=== PATIENT | female | born 1990 | race African-American/Black ===

== ENCOUNTER 2019-11-01 07:37 | Emergency (ER) | payer OTHER ==
[2019-11-01 07:55] VITALS: BP 109/54; PULSE 73; TEMP 98.5; BMI 23.8
--- NOTE | 2019-11-01 08:08 | PDOC ---
History of Present Illness - General Chief Complaint: Back Pain Stated Complaint: BACK PAIN Time Seen by Provider: 11/01/19 07:52 Past History - Medical History Allergies/Adverse Reactions: Allergies Allergy/AdvReac Type Severity Reaction Status Date / Time No Known Allergies Allergy Verified 11/01/19 07:52 Home Medications: Ambulatory Orders NK [No Known Home Medication] 01/09/16 Anemia: No Asthma: No Cancer: No Cardiac Disorders: No COPD: No Diabetes: No HTN: No Seizures: No Thyroid Disease: No - Surgical History Abdominal Surgery: No - Reproductive History (#): 1 Para: 0 Cervical CA: No Dysfunctional Uterine Bleeding: No Ectopic : No Endometrial CA: No Polycystic Ovaries: No Therapeutic (s) & number: No Tubal Ligation: No Spontaneous : 0 - Immunization History Immunization Up to Date: Yes - Psycho-Social/Smoking History Smoking Status: No Smoking History: Never smoked Have you smoked in the past 12 months: No Number of Cigarettes Smoked Daily: 0 Cigars Per Day: 0 Information on smoking cessation initiated: No - Substance Abuse Hx (Audit-C & DAST Scrn) How often the patient has a drink containing alcohol: Monthly or less Number of drinks the patient has on a typical day: 1 or 2 How often the patient has six or more drinks on one occasion: Less than monthly Score: In Men: 4 or > Positive; In Women: 3 or > Positive: 2 Screen Result (Pos requires Nsg. Audit-10AR): Negative In the last yr the pt used illegal drug/Rx for NonMed reason: No Score: Yes response is considered Positive: 0 Screen Result (Positive result requires Nsg. DAST-10): Negative *Physical Exam - Vital Signs Last Vital Signs Temp Pulse Resp BP Pulse Ox 98.5 F 73 18 109/54 L 100 11/01/19 07:50 11/01/19 07:50 11/01/19 07:50 11/01/19 07:50 11/01/19 07:50
[2019-11-01] MEDS ORDERED: LIDOCAINE 5% TOPICAL PATCH TP ONE (08:09)
[2019-11-01] MEDS ORDERED: IBUPROFEN 600 MG TABLET (FP) PO ONE ×2 (08:09→08:12)
[2019-11-01] MEDS ORDERED: LIDOCAINE 5% TOPICAL PATCH ONE (08:12)
--- NOTE | 2019-11-01 08:15 | PDOC ---
History of Present Illness - General Chief Complaint: Back Pain Stated Complaint: BACK PAIN Time Seen by Provider: 11/01/19 07:52 History Source: Patient Exam Limitations: No Limitations - History of Present Illness Initial Comments: 11/01/19 08:10 29-year-old female with no significant medical history presenting with back pain x1 day. Patient states she woke up in the morning yesterday from bed with mid back pain, worse with twisting motion bending and movement and taking deep breath in; relieved with rest. She denies any trauma. No heavy lifting or exertional exercises. 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 Patient denies any abdominal pain, nausea, vomiting, diarrhea, urinary symptoms, urinary retention or incontinence, weakness, focal paresthesias, fevers or chills. Denies any procedures Patient did take Tylenol yesterday extra strength with minimal relief. Has not tried anything since. Patient is able to ambulate without difficulty denies ; last menstrual period was 10/08/19 PMH: none PSH: none Social: soc ETOH, no tobacco use 11/01/19 08:12 11/01/19 08:33 Past History - Medical History Allergies/Adverse Reactions: Allergies Allergy/AdvReac Type Severity Reaction Status Date / Time No Known Allergies Allergy Verified 11/01/19 07:52 Home Medications: Ambulatory Orders Cyclobenzaprine HCl [Flexeril 10 mg] 10 mg PO TID PRN #12 tablet 11/01/19 Lidocaine 5% Patch [Lidoderm Patch -] 1 patch TP DAILY #7 patch 11/01/19 Anemia: No Asthma: No Cancer: No Cardiac Disorders: No COPD: No Diabetes: No HTN: No Seizures: No Thyroid Disease: No - Surgical History Abdominal Surgery: No - Reproductive History (#): 1 Para: 0 Cervical CA: No Dysfunctional Uterine Bleeding: No Ectopic : No Endometrial CA: No Polycystic Ovaries: No Therapeutic (s) & number: No Tubal Ligation: No Spontaneous : 0 - Immunization History Immunization Up to Date: Yes - Psycho-Social/Smoking History Smoking Status: No Smoking History: Never smoked Have you smoked in the past 12 months: No Number of Cigarettes Smoked Daily: 0 Cigars Per Day: 0 Information on smoking cessation initiated: No - Substance Abuse Hx (Audit-C & DAST Scrn) How often the patient has a drink containing alcohol: Monthly or less Number of drinks the patient has on a typical day: 1 or 2 How often the patient has six or more drinks on one occasion: Less than monthly Score: In Men: 4 or > Positive; In Women: 3 or > Positive: 2 Screen Result (Pos requires Nsg. Audit-10AR): Negative In the last yr the pt used illegal drug/Rx for NonMed reason: No Score: Yes response is considered Positive: 0 Screen Result (Positive result requires Nsg. DAST-10): Negative Review of Systems - Review of Systems Able to Perform ROS?: Yes Comments:: 11/01/19 08:11 Review of Systems Constitutional: no fevers or chills. Resp: no shortness of breath Cardiac: no chest pain. Abdomen: no abdominal pain Genitorurinary: no urinary retention or incontinence, no dysuria, urgency or frequency. no hematuria MUSCULOSKELETAL: No joint pain and swelling. No muscle pain/arthralgias. Back: +back pain SKIN: no redness or skin changes, no discharge, no rash. No wounds. Hematologic: no easy bruising/bleeding. NEUROLOGIC: No weakness, numbness or tingling. Allergic/Immunologic: no allergies All other systems reviewed and negative, or as documented in HPI. 11/01/19 08:12 *Physical Exam - Vital Signs Last Vital Signs Temp Pulse Resp BP Pulse Ox 98.5 F 73 18 109/54 L 100 11/01/19 07:50 11/01/19 07:50 11/01/19 07:50 11/01/19 07:50 11/01/19 07:50 - Physical Exam 11/01/19 08:11 physical exam General: NAD, well appearing HEENT: NCAT, EOMI, PERRL. airway patent Resp: no distress, speaking full sentences. Abdomen: soft, no tenderness, nondistended Vascular: 2+ DP pulses symmetric and equal. Back: no midline tenderness, no stepoffs, FROM. +lower thoracic paraspinal TTP and spasms. MSK: notable for soft compartments, Cap refill <2 sec. Proximal and distal strength 5/5, private wealth advisor strength 5/5 - equal and symmetric. Plantar flexion and dorsiflexion 5/5. FROM. Sensation grossly intact to light touch. No calf tenderness. neg SLR Neuro: alert, no focal neurologic deficits Skin: color normal color, warm and well perfused. Cap refill <2 sec. 11/01/19 08:47 Medical Decision Making - Medical Decision Making 11/01/19 08:13 Vital Signs Temp Pulse Resp BP Pulse Ox 98.5 F 73 18 109/54 L 100 11/01/19 07:50 11/01/19 07:50 11/01/19 07:50 11/01/19 07:50 11/01/19 07:50 ddx back strain, lumbago, sciatica, radiculopathy, spinal stenosis. Muscle spasm. Lumbar radiculopathy. No risk factors or findings concerning for epidural abscess, discitis, vertebral osteomyelitis, cord compression, cauda equina, vertebral fracture or bone malignancy, AAA, vascular pathology/bleeding or pyelonephritis. no radiculopathy sx. Clinically doubt based on exam and clinical history: cord compression or cauda equina, with low suspicion and NO red flag sx such as age>50, malignancy, weight loss, trauma, fevers, IVDU, lumbar/spinal procedures, bowel and bladder incontinence/retention, urinary sx, neurologic deficits or changes. Patient instructed to consider further imaging and workup through their primary care physician as an outpatient if symptoms persist. Clinically this patient can be ruled out for serious pathology given there is a completely normal neurological exam, no history of IV drug use, and no history of bowel or bladder incontinence, no perianal numbness/tingling, no constipation or urinary retention. Once the patients pain was adequately controlled, the patient was able to ambulate and be discharged in stable condition with anticipatory guidance provided. Can ambulate as tolerated, no heavy lifting, range of motion exercises encouraged. Rx meds, side effects reviewed, prn for analgesia/spasms. 11/01/19 08:47 11/01/19 08:47 Discharge - Discharge Information Problems reviewed: Yes Clinical Impression/Diagnosis: Acute bilateral thoracic back pain Condition: Improved Disposition: HOME - Admission No - Additional Discharge Information Prescriptions: Cyclobenzaprine HCl [Flexeril 10 mg] 10 mg PO TID PRN #12 tablet PRN Reason: Muscle Spasms Lidocaine 5% Patch [Lidoderm Patch -] 1 patch TP DAILY #7 patch - Follow up/Referral Referrals: [facility] [[facility] Group] [facility] - Patient Discharge Instructions Patient Printed Discharge Instructions: DI for Low Back Pain, Exercise May Reduce Risk of Low Back Pain Additional Instructions: Discharge: Please follow up with your Primary Care Doctor within 48-72 hours - call for an appointment. Ambulate as tolerated and no heavy lifting. Take Motrin 600 mg every 8 hours for pain with food, Valium 5mg every 8 hours as needed for muscle spasm- do not drive or make any important decisions while on this medication for it can make you drowsy. If you experience any worsening pain, swelling, numbness, weakness please return to ER HOME CARE INSTRUCTIONS: For many people, back pain returns. Since low back pain is rarely dangerous, it is often a condition that people can learn to manage on their own. Please remain active. It is stressful on the back to sit or clinical nurse occupational medicine one place. Do not sit, drive, or clinical nurse occupational medicine one place for more than 30 minutes at a time. Take short walks on level surfaces as soon as pain allows. Try to increase the length of time you walk each day. Do not stay in bed. Resting more than 1 or 2 days can delay your recovery. Do not avoid exercise or work. Your body is made to move. It is not dangerous to be active, even though your back may hurt. Your back will likely heal faster if you return to being active before your pain is gone. Only take [id number] or prescription medicines as directed by your caregiver. Vfwf-qth-pymmlfc medicines to reduce pain and inflammation are often the most helpful. Your caregiver may prescribe muscle relaxant drugs. These medicines help dull your pain so you can more quickly return to your normal activities and healthy exercise. Please avoid driving, operating heavy machinery or making important decisions while on this drug - it can cloud your judgment. Avoid feeling anxious or stressed. Stress increases muscle tension and can worsen back pain. It is important to recognize when you are anxious or stressed and learn ways to manage it. Exercise is a great option. SEEK MEDICAL CARE IF: You have pain that is not relieved with rest or medicine. You have pain that does not improve in 1 week. You have new symptoms. You are generally not feeling well. SEEK IMMEDIATE MEDICAL CARE IF: You have pain that radiates from your back into your legs. You develop new bowel or bladder control problems. You have unusual weakness or numbness in your arms or legs. You develop nausea or vomiting. You develop abdominal pain. You feel faint. - Post Discharge Activity Work/Back to School Note: Back to Work
== END 2019-11-01 09:03 | disposition home or self-care (01) ==
LOC: JER 07:37
DX: M54.6 Pain in thoracic spine (principal)
CPT/HCPCS: 99283-25

== ENCOUNTER 2020-01-31 16:37 | Emergency (ER) | payer OTHER ==
[2020-01-31 16:50] VITALS: BP 122/76; PULSE 94; TEMP 98.5; BMI 24.7
[2020-01-31] MEDS ORDERED: IBUPROFEN 600 MG TABLET (FP) PO ONE ×2 (17:05→17:06)
--- NOTE | 2020-01-31 17:11 | PDOC ---
History of Present Illness - General Chief Complaint: Back Pain Stated Complaint: BACK PAIN Time Seen by Provider: 01/31/20 16:59 History Source: Patient Exam Limitations: No Limitations - History of Present Illness Initial Comments: 01/31/20 17:06 29-year-old female with past medical history presenting to the ED with 1 day of lower back pain. 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 Patient was seen and evaluated here 2 months ago for similar lower back pain. Patient denies any saddle esthesia radiation bowel or bladder incontinence or any other symptoms including urinary symptoms. Past History - Medical History Allergies/Adverse Reactions: Allergies Allergy/AdvReac Type Severity Reaction Status Date / Time No Known Allergies Allergy Verified 01/31/20 16:45 Home Medications: Ambulatory Orders Cyclobenzaprine HCl [Flexeril 10 mg] 10 mg PO TID PRN #12 tablet 11/01/19 Lidocaine 5% Patch [Lidoderm Patch -] 1 patch TP DAILY #7 patch 11/01/19 Cyclobenzaprine HCl [Flexeril 10 mg] 10 mg PO BID PRN 7 Days #14 tablet 01/31/20 Ibuprofen [Ibu] 600 mg PO TID 7 Days #21 tablet 01/31/20 Anemia: No Asthma: No Cancer: No Cardiac Disorders: No COPD: No Diabetes: No HTN: No Seizures: No Thyroid Disease: No - Surgical History Abdominal Surgery: No - Reproductive History Is Patient Now?: No (#): 1 Para: 0 Cervical CA: No Dysfunctional Uterine Bleeding: No Ectopic : No Endometrial CA: No Polycystic Ovaries: No Therapeutic (s) & number: No Tubal Ligation: No Spontaneous : 0 - Immunization History Immunization Up to Date: Yes - Psycho-Social/Smoking History Smoking Status: No Smoking History: Never smoked Have you smoked in the past 12 months: No Number of Cigarettes Smoked Daily: 0 Cigars Per Day: 0 - Substance Abuse Hx (Audit-C & DAST Scrn) How often the patient has a drink containing alcohol: Never Score: In Men: 4 or > Positive; In Women: 3 or > Positive: 0 Screen Result (Pos requires Nsg. Audit-10AR): Negative In the last yr the pt used illegal drug/Rx for NonMed reason: No Score: Yes response is considered Positive: 0 Screen Result (Positive result requires Nsg. DAST-10): Negative *Physical Exam - Vital Signs Last Vital Signs Temp Pulse Resp BP Pulse Ox 98.5 F 94 H 18 122/76 100 01/31/20 16:46 01/31/20 16:46 01/31/20 16:46 01/31/20 16:46 01/31/20 16:46 - Physical Exam 01/31/20 17:07 Gen: AAOx 3, no acute distress, comfortable, no signs of respiratory distress HENT: atraumatic, normocephalic with no laceration or contusion. Nasal mucosa without erythema. Oropharynx without erythema or exudates. Mucous membranes moist. EYES: PERRL, EOM intact, conjunctiva pink NECK: supple; trachea midline; no JVD, no lymphadenopathy, or thyromegaly CV: RRR no murmurs, gallops, or rubs. CHEST: CTA b/l no wheezing, rales or rhonchi ABD: +BS/ND. no TTP; soft, no rebound, no guarding EXTREMITY: no cyanosis or erythema. 2+ dorsalis pedis, posterior tibial, and radial pulse. No pedal edema; no calf swelling or tenderness SKIN: no rash, warm and dry, no diaphoresis Back: Tender to palpation over paravertebrals with no midline tenderness pain exacerbated on flexion HEME: no purpura or ecchymosis NEURO: normal speech, CN II-XII intact, sensation intact, normal gait, no cerebellar deficits MS: 5/5 strength in all extremities, FROM intact in all extremities. Medical Decision Making - Medical Decision Making 01/31/20 17:07 29-year-old female with lower back pain VSS No signs or symptoms consistent with kidney pathology or vertebral pathology including cord compression or cauda equina Will administer IBU for symptomatic relief Pt reports improvement of pain with meds. Pt discharged with IBU and Flexeril Patient was instructed not to drive or operate heavy machinery while taking flexeril. The patient was also instructed not to take the medication with any other sedating medications and not to drink alcohol while taking the medication. Pt appears well and is safe and stable for discharge with strict return precautions including signs and symptoms requring immediate return to the ED Supportive care instructions explained and given to pt. Reasons to return emergently to ER explained and given. Importance of follow up with PMD and other specialists as indicated stressed to pt. Pt verbalized understanding of instructions. Pt to follow up with PMD in 2 days. Discharge - Discharge Information Problems reviewed: Yes Clinical Impression/Diagnosis: Back pain Qualifiers: Back pain location: low back pain Chronicity: acute Back pain laterality: bilateral Sciatica presence: without sciatica Qualified Code(s): M54.5 - Low back pain Condition: Stable Disposition: HOME - Additional Discharge Information Prescriptions: Cyclobenzaprine HCl [Flexeril 10 mg] 10 mg PO BID PRN 7 Days #14 tablet PRN Reason: Back Pain Ibuprofen [Ibu] 600 mg PO TID 7 Days #21 tablet - Follow up/Referral - Patient Discharge Instructions Patient Printed Discharge Instructions: DI for Low Back Pain - Post Discharge Activity
--- OUTSIDE RECORDS SUMMARY | 2020-01-31 17:14 | XMS ---
:1990 Author Organization [facility] Support Name Relationship Address Phone FERNCL Unavailable [address] [phone] [place] [address] LOLA FARAH MOTHER [address] [phone] [place] [address] FARAHCATHI VEGARICE Unavailable [address] [place] [address] Re-disclosure Warning The records that you are about to access may contain information from federally- assisted alcohol or drug abuse programs. If such information is present, then the following federally mandated warning applies: This information has been disclosed to you from records protected by federal confidentiality rules (42 CFR part 2). The federal rules prohibit you from making any further disclosure of this information unless further disclosure is expressly permitted by the written consent of the person to whom it pertains or as otherwise permitted by 42 CFR part 2. A general authorization for the release of medical or other information is NOT sufficient for this purpose. The Federal rules restrict any use of the information to criminally investigate or prosecute any alcohol or drug abuse patient.The records that you are about to access may contain highly sensitive health information, the redisclosure of which is protected by Article 27-F of the [facility] Public Health law. If you continue you may haveaccess to information: Regarding HIV / AIDS; Provided by facilities licensed or operated by the [facility] Office of Mental Health; or Provided by the [facility] Office for People With Developmental Disabilities. If such information is present, then the following [facility] mandated warning applies: This information has been disclosed to you from confidential records which are protected by state law. State law prohibits you from making any further disclosure of this information without the specific written consent of the person to whom it pertains, or as otherwise permitted by law. Any unauthorized further disclosure in violation of state law may result in a fine or penitentiary sentence or both. A general authorization for the release of medical or other information is NOT sufficient authorization for further disclosure. Insurance Providers Payer name Policy type Policy ID Covered Covered constitution party's Policy P tyler / Coverage constitution party ID relationship to Wills Inf ormation type wills [place] [id number] Results ID Date Data Source [id number] 01/21/2020 12:00:00 AM EDT [facility] Name Value Range Interpretation Code Description Data Sharlene rce(s) Supporting Document(s ) COV2 [facility] This lab was ordered by [facility] and reported by [employer] [facility]. ID Date Data Source [id number] 12/11/2019 12:00:00 AM EDT [facility] Name Value Range Interpretation Code Description Data Sharlene rce(s) Supporting Document(s ) COV2 [facility] This lab was ordered by [facility] and reported by [employer] [place]. ID Date Data Source [id number] 10/12/2019 12:00:00 AM EDT [facility] Name Value Range Interpretation Code Description Data Sharlene rce(s) Supporting Document(s ) COV2 [facility] This lab was ordered by [facility] and reported by [employer] [place]. ID Date Data Source [id number] 07/27/2019 12:00:00 AM EDT [facility] Name Value Range Interpretation Code Description Data Sharlene rce(s) Supporting Document(s ) 2019-nCoV [facility] RNA XXX NGOZI+probe- Imp This lab was ordered by [facility] and reported by [employer] Procedure
== END 2020-01-31 17:21 | disposition home or self-care (01) ==
LOC: JERFT 16:37
DX: M54.5 Low back pain (principal)
CPT/HCPCS: 99283-25

== ENCOUNTER 2020-07-17 09:12 | Emergency (ER) | payer OTHER ==
[2020-07-17 09:33] VITALS: BP 127/81; PULSE 108; TEMP 98.1; BMI 24.3
== END 2020-07-17 10:40 | disposition home or self-care (01) ==
LOC: JER 09:12
DX: R50.9 Fever, unspecified (principal); R05 Cough; M79.10 Myalgia, unspecified site; Z20.822 Contact with and (suspected) exposure to COVID-19
CPT/HCPCS: 71046-TC-FY; 99284-25; C9803; U0003; U0005

== ENCOUNTER 2020-12-29 16:12 | Emergency (ER) | payer OTHER ==
[2020-12-29 16:20] VITALS: BP 119/82; PULSE 86; TEMP 98.1; BMI 24.8
== END 2020-12-29 17:06 | disposition home or self-care (01) ==
LOC: JERFT 16:12 → JER 16:12 → JERFT 17:06
DX: H66.002 Acute suppurative otitis media without spontaneous rupture of ear drum, left ear (principal)
CPT/HCPCS: 99283-25

== ENCOUNTER 2021-07-22 15:56 | Emergency (ER) | payer OTHER ==
[2021-07-22 16:10] VITALS: BP 115/72; PULSE 84; TEMP 97.9; BMI 24.7
== END 2021-07-22 17:56 | disposition home or self-care (01) ==
LOC: JER 15:56
DX: R07.9 Chest pain, unspecified (principal)
CPT/HCPCS: 93005; 93010; 99283-25

== ENCOUNTER 2022-10-28 15:37 | Emergency (ER) | payer OTHER ==
[2022-10-28 15:43] VITALS: BP 113/68; PULSE 79; RESP 17; TEMP 98; BMI 23.8
[2022-10-28] MEDS ORDERED: ACETAMINOPHEN 325 MG TABLET (FP) PO ONE (16:43)
[2022-10-28] MEDS ORDERED: ACETAMINOPHEN 325 MG TABLET (FP) ONE (17:01)
[2022-10-28 17:20] LABS: BASO % 0.4 % (0-2.0); EOS % 0.6 % (0-4.5); HEMATOCRIT 35.5 % (32.4-45.2); HEMOGLOBIN 11.6 GM/dL (10.7-15.3); LYMPH % 24.1 % (8-40); MCH 30.3 pg (25.7-33.7); MCHC 32.6 g/dl (32.0-36.0); MEAN PLT VOLUME 7.8 fl (7.5-11.1); MONO % 8.7 % (3.8-10.2); NEUT % 66.2 % (42.8-82.8); PLATELET COUNT 342 10^3/uL (134-434); RBC 3.82 M/mm3 (3.60-5.2); RDW 12.5 % (11.6-15.6); WHITE BLOOD COUNT 8.2 K/mm3 (4.0-10.0)
[2022-10-28 17:21] LABS: EPI CELLS 15 /uL (0-25.1); HYALINE CASTS 0 /uL (0-3.1); PH,URINE 6.5 (5.0-8.0); URINE APPEARANCE CLEAR; URINE BACTERIA 14 /uL (0-1359); URINE BILIRUBIN NEGATIVE (NEGATIVE); URINE COLOR YELLOW; URINE GLUCOSE (UA) NEGATIVE (NEGATIVE); URINE KETONE TRACE (NEGATIVE); URINE LEUK ESTERASE NEGATIVE (NEGATIVE); URINE NITRITE NEGATIVE (NEGATIVE); URINE PROTEIN NEGATIVE (NEGATIVE); URINE RBC 22 /uL (0-23.9); URINE WBC 3 /uL (0-25.8)
[2022-10-28 17:36] LABS: CHLORIDE 105 mmol/L (98-107); POTASSIUM 3.8 mmol/L (3.5-5.1); SODIUM 140 mmol/L (136-145)
[2022-10-28 17:38] LABS: ALBUMIN 3.8 g/dl (3.4-5.0); ANION GAP 9 MMOL/L (8-16); BLOOD UREA NITROGEN 10.7 mg/dL (7-18); CALCIUM 9.1 mg/dL (8.5-10.1); CO2 26 mmol/L (21-32)
[2022-10-28 17:39] LABS: GLUCOSE,RANDOM 88 mg/dL (74-106)
[2022-10-28 17:41] LABS: CREATININE 0.6 mg/dL (0.55-1.3); SGOT/AST 10 U/L (15-37); SGPT/ALT 17 U/L (13-61)
[2022-10-28 17:43] LABS: BILIRUBIN,TOTAL 0.2 mg/dL (0.2-1); TOT PROT 7.9 g/dl (6.4-8.2)
[2022-10-28 17:44] LABS: ALK PHOS 72 U/L (45-117)
[2022-10-28 20:44] LABS: HCG,QUALITATIVE URINE NEGATIVE
[2022-10-28] MEDS ORDERED: KETOROLAC TROMETHAMINE 15 MG/ML VIAL IVPUSH ONE (21:33)
[2022-10-28] MEDS ORDERED: KETOROLAC TROMETHAMINE 15 MG/ML VIAL ONE (21:54)
[2022-10-28 22:43] LABS: EPI CELLS 7 /uL (0-25.1); HYALINE CASTS 0 /uL (0-3.1); URINE APPEARANCE CLEAR; URINE BACTERIA 21 /uL (0-1359); URINE BILIRUBIN NEGATIVE (NEGATIVE); URINE COLOR YELLOW; URINE GLUCOSE (UA) NEGATIVE (NEGATIVE); URINE KETONE 1+ (NEGATIVE); URINE LEUK ESTERASE NEGATIVE (NEGATIVE); URINE NITRITE NEGATIVE (NEGATIVE); URINE PROTEIN NEGATIVE (NEGATIVE); URINE RBC 15 /uL (0-23.9); URINE UROBILINOGEN 0.2 mg/dL (0.2-1.0); URINE WBC 2 /uL (0-25.8)
[2022-10-28 22:54] LABS: HCG,QUALITATIVE URINE Positive
== END 2022-10-28 23:15 | disposition home or self-care (01) ==
LOC: JER 15:37
PROC: 3E0333Z Introduction of Anti-inflammatory into Peripheral Vein, Percutaneous Approach (ICD-10-PCS; principal; 2022-10-28)
DX: M54.50 Low back pain, unspecified (principal); R10.31 Right lower quadrant pain; R11.10 Vomiting, unspecified
CPT/HCPCS: 36415; 74177-TC; 76817-TC; 80053; 81003; 84702; 84703; 85025; 87086; 99285-25; Q9967

== ENCOUNTER 2023-04-26 15:37 | Emergency (ER) | payer OTHER ==
[2023-04-26 15:49] VITALS: BP 106/68; PULSE 81; RESP 20; TEMP 98.3; BMI 23.8
[2023-04-26] MEDS ORDERED: IBUPROFEN 400 MG TABLET (FP) PO ONE ×2 (16:53→17:03)
== END 2023-04-26 19:14 | disposition home or self-care (01) ==
LOC: JERFT 15:37
DX: M79.645 Pain in left finger(s) (principal); R22.32 Localized swelling, mass and lump, left upper limb; L29.9 Pruritus, unspecified; L53.9 Erythematous condition, unspecified; L03.114 Cellulitis of left upper limb
CPT/HCPCS: 73140-TC-LT-FY; 99283-25